=== PATIENT | female | born 1955 | race African-American/Black ===

== ENCOUNTER 2016-10-27 22:08 | Emergency (ER) | payer OTHER ==
[~2016-10-27 22:08] MED LIST: ECOT81TA2 PO; LISI10TA3 PO; MEGE40SU PO; METO25TA3 PO; Z.0.WALKERFRONT
[2016-10-27 22:11] VITALS: BP 213/93; PULSE 102; RESP 20; TEMP 99.2; O2SAT 97
[2016-10-27] MEDS ORDERED: ONDANSETRON HCL 4 MG/2 ML VIAL IVP ONE (23:15)
[2016-10-27] MEDS ORDERED: HYDROmorphone HCL PF 1 MG/ML VIAL IVS ONE (23:15)
--- NOTE | 2016-10-28 00:10 | RADRPT ---
EXAM DATE/TIME: 10/27/2016 23:31 [facility] COMPARISON: CT ABDOMEN & PELVIS W/O CONTRAST, July 21, 2015, 5:32. INDICATIONS : Abdomen pain. MEDICAL HISTORY : Carcinoma, gastric. Diabetes mellitus type 2. Cardiovascular disease. SURGICAL HISTORY : Cholecystectomy. Hysterectomy. section. ENCOUNTER: Initial ACUITY: 1 day PAIN SCORE: 0/10 LOCATION: Bilateral abdomen FINDINGS: Gas is seen in loops of small and large bowel. No disproportionately dilated loops seen. Anastomosi s sutures seen in the left lateral midabdomen. Osseous structures are grossly intact. The visualize d lower lungs are clear. No evidence of free air on the erect view. CONCLUSION: Gas-filled loops of small and large bowel, similar to prior. Gonzalo Kim MD on October 28, 2016 at 0:06 Board Certified Radiologist. This report was verified electronically.
--- NOTE | 2016-10-28 00:17 | PD ---
HPI Chief Complaint: Abdominal Pain Time Seen by Provider: 22:40 Travel History International Travel<30 days: No Contact w/Intl Traveler<30days: No Traveled to known affect area: No History of Present Illness HPI H/O RECURRENT GASTRIC CA, IS UNDERGOING TREATMENT AND HAS DECLINED HOSPICE. PATIENT IS HERE FOR ABDOMINAL PAIN, NO N/V/D, HAS NL BOWEL MOVEMENTS THUS FAR. PATIENT STATES THAT HER HOME PAIN MEDICATION IS NOT HELPING HER, SHE UNDERSTANDS THAT HER CANCER IS WHAT'S CAUSING HER PAIN AND DOES NOT REALLY WANT ANY MAJOR WORK UP (HER H/P WAS CORROBORATED BY EMR) PFSH Past Medical History Hx Anticoagulant Therapy: Yes Anemia: Yes Arthritis: Yes Autoimmune Disease: No Heart Rhythm Problems: No Cancer: Yes (Gastric cancer) Cardiac Catheterization: Yes Cardiovascular Problems: Yes (HTN) High Cholesterol: Yes Chemotherapy: Yes Chest Pain: Yes Congestive Heart Failure: No Diabetes: Yes Patient Takes Glucophage: No Diminished Hearing: No Endocrine: Yes Gastrointestinal Disorders: Yes (GASTRIC CANCER, NAUSEA, GALLSTONES) GERD: Yes Genitourinary: No Hepatitis: No Hiatal Hernia: No Hypertension: Yes Immune Disorder: No Medical other: Yes (TIRES VERY EASILY, ANEMIA) Musculoskeletal: Yes Neurologic: No Psychiatric: No Reproductive: No Respiratory: Yes Immunizations Current: Yes Radiation Therapy: Yes Thyroid Disease: No ?: Not Menopausal: Yes : 1 Para: 1 Past Surgical History Abdominal Surgery: Yes (Gastric surgery, gallstones removal, resection w/ colostomy and reversal) AICD: No Body Medical Devices: CARDIAC STENTS X 2; INFUS A PORT Cardiac Surgery: Yes (Cardiac stents x2) Section: Yes Cholecystectomy: Yes Coronary Artery Bypass Graft: No Coronary Stent: Yes (x 4) Ear Surgery: No Endocrine Surgery: Yes Eye Surgery: No Genitourinary Surgery: No Gynecologic Surgery: Yes Hysterectomy: Yes Joint Replacement: No Oral Surgery: No Pacemaker: No Thoracic Surgery: No Other Surgery: Yes Family History Family Myocardial Infarction: Yes Social History Alcohol Use: No Tobacco Use: No Substance Use: No (hx) Allergies-Medications (Allergen,Severity, Reaction): Coded Allergies: *MDRO Multi-Drug Resistant Organism (Verified Adverse Reaction, Unknown, ) MRSA 2011 Wound MRSA PCR Screen negative 02/21/15 and 02/26/15. Cleared per Infection Control. Reported Meds & Prescriptions Reported Meds & Active Scripts Active Megestrol Liq (Megestrol Acetate) 40 Mg/Ml Susp 400 Mg PO DAILY Metoprolol Tartrate 25 Mg Tab 25 Mg PO DAILY Lisinopril 10 Mg Tab 10 Mg PO DAILY Ecotrin Low Strength (Aspirin) 81 Mg Tabec 81 Mg PO DAILY Walker Front Wheel ([email or web address].walkerfront) Device 1 Unit Review of Systems Gastrointestinal: Positive: Abdominal Pain Physical Exam Narrative GENERAL: SKIN: Warm and dry. HEAD: Atraumatic. Normocephalic. EYES: Pupils equal and round. No scleral icterus. No injection or drainage. ENT: No nasal bleeding or discharge. Mucous membranes pink and moist. NECK: Trachea midline. No JVD. CARDIOVASCULAR: Regular rate and rhythm. RESPIRATORY: No accessory muscle use. Clear to auscultation. Breath sounds equal bilaterally. GASTROINTESTINAL: Abdomen OBESE, SOFT, EPIG REGION HAS SOME TTP, NO REBOUND/ GUARDING/RIGIDITY NOTED MUSCULOSKELETAL: Extremities without clubbing, cyanosis, or edema. No obvious deformities. NEUROLOGICAL: Awake and alert. No obvious cranial nerve deficits. Motor grossly within normal limits. Five out of 5 muscle strength in the arms and legs. Normal speech. PSYCHIATRIC: Appropriate mood and affect; insight and judgment normal. Data Data Last Documented VS Vital Signs Date Time Temp Pulse Resp B/P Pulse Ox O2 Delivery O2 Flow Rate FiO2 10/27/16 22:20 15 10/27/16 22:11 99.2 102 213/93 97 Orders Abdomen, Flat & Upright (10/27/16 ) Ondansetron Inj (Zofran Inj) (10/27/16 23:15) Hydromorphone Pf Inj (Dilaudid Pf Inj) (10/27/16 23:15) MDM Medical Decision Making Medical Screen Exam Complete: Yes Emergency Medical Condition: Yes Medical Record Reviewed: Yes Differential Diagnosis SBO V PERFORATION V CANCER RELATED PAIN Narrative Course AFTER CORROBORATING HER CURRENT MED HISTORY RECENT OCTOBER 2016, WILL PROVIDE PAIN CONTROL AND D/C TO F/U WITH ONCOLOGIST....ADDITIONALLY PATIENT STATED SHE HAS PAIN MEDICATION AT HOME THAT SHE WILL CONTINUE TAKING AND SHE WILL F/U WITH HER ONCOLOGIST Diagnosis Primary Impression: BREAKTHROUGH ABDOMINAL PAIN DUE TO GASTRIC CANCER Patient Instructions: Narcotic given in the ED, General Instructions Disposition: DISCHARGE HOME Condition: Stable Mulugeta Jamil MD Oct 28, 2016 00:16
[2016-10-28] MEDS ORDERED: HYDROmorphone HCL PF 1 MG/ML VIAL IVS ONE (01:30)
== END 2016-10-28 01:30 | disposition home or self-care (01) ==
LOC: NEPC 22:08
DX: C16.9 Malignant neoplasm of stomach, unspecified (principal); Z79.01 Long term (current) use of anticoagulants; I10 Essential (primary) hypertension; E78.00 Pure hypercholesterolemia, unspecified; D64.9 Anemia, unspecified; M19.90 Unspecified osteoarthritis, unspecified site; Z95.5 Presence of coronary angioplasty implant and graft
CPT/HCPCS: 74020; 96374; 96375; 99284; J1170; J1642; J2405

== ENCOUNTER 2017-02-12 11:31 | Emergency (ER) | payer OTHER ==
[~2017-02-12] VITALS: Ht 152.4 cm; Wt 45.0 kg
[~2017-02-12 11:31] MED LIST changes: +ALEN1TAB48 PO; +AMLO5TAB2 PO
[2017-02-12 11:33] VITALS: BP 121/64; PULSE 95; RESP 16; TEMP 98.6; O2SAT 97
[2017-02-12] MEDS ORDERED: SODIUM CHLOR 0.9% 1000 ML INJ 1,000 ML IV ONE (12:30)
[2017-02-12] MEDS ORDERED: ACETAMINOPHEN/HYDROcodone 325 MG/5 MG TAB PO ONE (12:30)
--- NOTE | 2017-02-12 13:08 | RADRPT ---
EXAM DATE/TIME: 02/12/2017 12:44 [facility] COMPARISON: CHEST PA & LAT, February 26, 2015, 10:17. ABDOMEN FLAT & UPRIGHT, October 27, 2016, 23:31. INDICATIONS : Short of breath, weakness. MEDICAL HISTORY : Carcinoma, gastric. SURGICAL HISTORY : Cholecystectomy. ENCOUNTER: Initial ACUITY: 1 day PAIN SCORE: 0/10 LOCATION: Bilateral chest FINDINGS: The [id number] in good position. There is a focal area of infiltrate seen in the right midlung fie ld. This is concerning for a pneumonia. Followup to ensure there is no underlying mass would be warra nted. The left lung is clear. The bony structures demonstrate degenerative changes in the shoulders but are otherwise intact. CONCLUSION: 1. There is focal infiltrate in the right midlung field concerning for pneumonia. Please see above. 2. The [id number] in satisfactory position. Bharat Tillman MD on February 12, 2017 at 13:05 Board Certified Radiologist. This report was verified electronically.
[2017-02-12 13:13] LABS: AUTOMATED NEUTROPHIL # 7.1 TH/MM3 (1.8-7.7); BASOPHIL # 0.1 TH/MM3 (0-0.2); BASOPHIL % 0.6 % (0.0-2.0); EOSINOPHIL % 0.2 % (0.0-4.0); HEMATOCRIT 32.7 % (35.0-46.0); HEMO FLAGS DIFF FINAL; LYMPH % 22.5 % (9.0-44.0); LYMPHOCYTE # 2.6 TH/MM3 (1.0-4.8); MEAN CELL VOLUME 88.1 FL (80.0-100.0); MEAN CORPUSCULAR HEMOGLOBIN 30.6 PG (27.0-34.0); MEAN CORPUSCULAR HGB CONC 34.8 % (32.0-36.0); NEUT % 62.7 % (16.0-70.0); PLATELET COUNT 491 TH/MM3 (150-450); RED BLOOD COUNT 3.72 MIL/MM3 (4.00-5.30); RED CELL DISTRIBUTION WIDTH 15.5 % (11.6-17.2); WHITE BLOOD COUNT 11.3 TH/MM3 (4.0-11.0)
[2017-02-12 13:23] LABS: BACTERIA, URINE RARE /hpf; BLOOD, URINE TRACE (NEG); COMMENT (UR) CULT NOT INDICATED; CULTURE IF INDICATED CULT NOT INDICATED; GLUCOSE,URINE NEG (NEG); HYALINE CAST, URINE 7 /lpf (RARE); KETONE, URINE 10 mg/dL (NEG); MUCUS URINE FEW /lpf (OCC); NITRITE,URINE NEG (NEG); PH, URINE 5.5 (5.0-8.5); SQUAMOUS EPITHELIAL CELL URINE 4 /hpf (0-5); URINE COLOR YELLOW (YELLW/STRAW)
[2017-02-12] MEDS ORDERED: HYDR-3533 PO (13:23)
[2017-02-12] MEDS ORDERED: LEVO750T3 PO (13:23)
--- NOTE | 2017-02-12 13:23 | PD ---
HPI Chief Complaint: Abdominal Pain Time Seen by Provider: 12:22 Travel History International Travel<30 days: No Contact w/Intl Traveler<30days: No Traveled to known affect area: No History of Present Illness HPI This is a 61-year-old woman who presents to the emergency department complaining of feeling sick. She is a history of recurrent stomach malignancy. She is on chemotherapy. She's had some subjective fevers as well. She's had some cough cold symptoms. She feels like the cough just won't come up. She had some back pain with this. She's been out of her pain medicine. She follows up with Dr. Garcia here. Last chemotherapy was several weeks ago. History Past Medical History Narrative Medical Recurrent epigastric malignancy Diabetes Hypertension History of heart disease Menopausal: Yes : 1 Para: 1 Social History Alcohol Use: No Tobacco Use: No Allergies-Medications (Allergen,Severity, Reaction): Coded Allergies: *MDRO Multi-Drug Resistant Organism (Verified Adverse Reaction, Unknown, 02/12/17) MRSA 2011 Wound MRSA PCR Screen negative 02/21/15 and 02/26/15. Cleared per Infection Control. Reported Meds & Prescriptions Reported Meds & Active Scripts Active Levofloxacin 750 Mg Tablet 750 Mg PO DAILY 10 Days Lortab (Hydrocodone-Acetaminophen) 5-325 Mg Tab 1-2 Tab PO Q6H PRN Alendronate (Alendronate Sodium) 70 Mg Tab 70 Mg PO Q7D Amlodipine (Amlodipine Besylate) 5 Mg Tab 5 Mg PO DAILY Metoprolol Tartrate 25 Mg Tab 25 Mg PO DAILY Lisinopril 10 Mg Tab 10 Mg PO DAILY Megestrol Liq (Megestrol Acetate) 40 Mg/Ml Susp 400 Mg PO DAILY Ecotrin Low Strength (Aspirin) 81 Mg Tabec 81 Mg PO DAILY Walker Front Wheel (Z.0.walkerfront) Device 1 Unit Review of Systems Except as stated in HPI: all other systems reviewed are Neg Physical Exam Narrative GENERAL: Well-appearing 61-year-old woman, no acute distress. SKIN: Focused skin assessment warm/dry. NECK: Trachea midline. No JVD. CARDIOVASCULAR: Abdomen flat and soft. No tenderness. RESPIRATORY: No accessory muscle use. Clear to auscultation. Breath sounds equal bilaterally. GASTROINTESTINAL: Abdomen soft, non-tender, nondistended. Hepatic and splenic margins not palpable. MUSCULOSKELETAL: No obvious deformities. No edema. NEUROLOGICAL: Awake and alert. No obvious cranial nerve deficits. Motor grossly within normal limits. Normal speech. Data Data Last Documented VS Vital Signs Date Time Temp Pulse Resp B/P (MAP) Pulse Ox O2 Delivery O2 Flow Rate FiO2 02/12/17 13:45 16 02/12/17 11:33 98.6 95 121/64 (83) 97 Orders Orders Complete Blood Count With Diff (02/12/17 12:26) Comprehensive Metabolic Panel (02/12/17 12:26) Lipase (02/12/17 12:26) Iv Access Insert/Monitor (02/12/17 12:26) Urinalysis - C+S If Indicated (02/12/17 12:26) Acetamin-Hydrocod 325-5 Mg ([place] 5-325 (02/12/17 12:30) Sodium Chlor 0.9% 1000 Ml Inj (Ns 1000 M (02/12/17 12:30) Chest, Single Ap (02/12/17 ) Labs Laboratory Tests Test 02/12/17 12:45 White Blood Count 11.3 TH/MM3 Red Blood Count 3.72 MIL/MM3 Hemoglobin 11.4 GM/DL Hematocrit 32.7 % Mean Corpuscular Volume 88.1 FL Mean Corpuscular Hemoglobin 30.6 PG Mean Corpuscular Hemoglobin Concent 34.8 % Red Cell Distribution Width 15.5 % Platelet Count 491 TH/MM3 Mean Platelet Volume 7.1 FL Neutrophils (%) (Auto) 62.7 % Lymphocytes (%) (Auto) 22.5 % Monocytes (%) (Auto) 14.0 % Eosinophils (%) (Auto) 0.2 % Basophils (%) (Auto) 0.6 % Neutrophils # (Auto) 7.1 TH/MM3 Lymphocytes # (Auto) 2.6 TH/MM3 Monocytes # (Auto) 1.6 TH/MM3 Eosinophils # (Auto) 0.0 TH/MM3 Basophils # (Auto) 0.1 TH/MM3 CBC Comment DIFF FINAL Differential Comment Urine Color YELLOW Urine Turbidity HAZY Urine pH 5.5 Urine Specific [place] 1.021 Urine Protein 30 mg/dL Urine Glucose (UA) NEG mg/dL Urine Ketones 10 mg/dL Urine Occult Blood TRACE Urine Nitrite NEG Urine Bilirubin NEG Urine Urobilinogen LESS THAN 2.0 MG/DL Urine Leukocyte Esterase NEG Urine RBC 2 /hpf Urine WBC 4 /hpf Urine Squamous Epithelial Cells 4 /hpf Urine Bacteria RARE /hpf Urine Hyaline Casts 7 /lpf Urine Mucus FEW /lpf Microscopic Urinalysis Comment CULT NOT INDICATED Blood Urea Nitrogen 17 MG/DL Creatinine 0.91 MG/DL Random Glucose 124 MG/DL Total Protein 9.0 GM/DL Albumin 2.9 GM/DL Calcium Level 9.1 MG/DL Alkaline Phosphatase 57 U/L Aspartate Amino Transf (AST/SGOT) 16 U/L Alanine Aminotransferase (ALT/SGPT) 15 U/L Total Bilirubin 0.4 MG/DL Sodium Level 138 MEQ/L Potassium Level 3.1 MEQ/L Chloride Level 106 MEQ/L Carbon Dioxide Level 23.8 MEQ/L Anion Gap 8 MEQ/L Estimat Glomerular Filtration Rate 76 ML/MIN Lipase 126 U/L MDM Medical Decision Making Medical Screen Exam Complete: Yes Emergency Medical Condition: Yes Interpretation(s) Chest x-ray: Focal infiltrate in the right midlung. Possible pneumonia. We'll need repeat exam Differential Diagnosis Pain from malignancy, infection, gastritis, cough cold symptoms, pneumonia, other Narrative Course Medical decision-making new para 61-year-old woman with recurrent gastric cancer here with cough cold symptoms and GI pain. She looks well. X-ray suggestive of pneumonia. We'll treat with pain medicine and antibiotics and outpatient follow-up. Diagnosis Primary Impression: Pneumonia Additional Instructions: Follow-up with the primary doctor in the next 2-4 days. Take antibiotics as prescribed. Use pain medicine as needed. Return to the emergency department for any new or worsening symptoms. Med/Other Pt SpecificInfo: Prescription(s) given Scripts Levofloxacin (Levofloxacin) 750 Mg Tablet 750 MG PO DAILY for Infection for 10 Days, #10 TAB 0 Refills Prov: aJn Cabrera MD 02/12/17 Hydrocodone-Acetaminophen (Lortab) 5-325 Mg Tab 1-2 TAB PO Q6H Y for PAIN, #21 TAB 0 Refills Prov: Jan Cabrera MD 02/12/17 Disposition: 01 DISCHARGE HOME Condition: Stable Jan Cabrera MD Feb 12, 2017 13:23
[2017-02-12 13:37] LABS: ALT (GPT) 15 U/L (10-53); ANION GAP 8 MEQ/L (5-15); AST (GOT) 16 U/L (15-37); BICARBONATE 23.8 MEQ/L (21.0-32.0); BLOOD UREA NITROGEN 17 MG/DL (7-18); CHLORIDE 106 MEQ/L (98-107); GLOMERULAR FILTRATION RATE 76 ML/MIN (>89); POTASSIUM 3.1 MEQ/L (3.5-5.1); SODIUM (NA) 138 MEQ/L (136-145)
[2017-02-12 13:40] LABS: ALKALINE PHOSPHATASE 57 U/L (45-117); TOTAL BILIRUBIN ADULT 0.4 MG/DL (0.2-1.0)
[2017-02-12 13:45] VITALS: RESP 16
[2017-02-12] MEDS ORDERED: SODIUM CHLORIDE 0.9% FLUSH 10 ML FLUSH IVF PRN (14:30)
== END 2017-02-12 14:35 | disposition home or self-care (01) ==
LOC: NEPD 11:31
DX: J18.9 Pneumonia, unspecified organism (principal); E11.9 Type 2 diabetes mellitus without complications; I11.9 Hypertensive heart disease without heart failure; Z85.028 Personal history of other malignant neoplasm of stomach; Z79.899 Other long term (current) drug therapy
CPT/HCPCS: 71010; 80053; 81001; 83690; 85025; 96360; 99284; J1642; J7030

== ENCOUNTER 2017-09-13 00:10 | Emergency (ER) | payer OTHER ==
[~2017-09-13] VITALS: Ht 152.4 cm; Wt 55.0 kg
[~2017-09-13 00:10] MED LIST changes: +HYDR-3533 PO; +LEVO750T3 PO
[2017-09-13 00:17] VITALS: BP 175/86; PULSE 88; RESP 18; TEMP 99.4; O2SAT 98
[2017-09-13] MEDS ORDERED: ONDANSETRON ODT 4 MG TAB PO ONE (01:15)
[2017-09-13] MEDS ORDERED: KETOROLAC TROMETHAMINE 30 MG/ML (IVP) VIAL IVP ONE (01:15)
[2017-09-13] MEDS ORDERED: MORPHINE SULFATE 8 MG/ML INJ IV PUSH ONE (01:15)
[2017-09-13] MEDS ORDERED: SODIUM CHLORIDE 0.9% FLUSH 10 ML FLUSH IV FLUSH PRN (01:15)
[2017-09-13 02:44] LABS: AUTOMATED NEUTROPHIL # 3.7 TH/MM3 (1.8-7.7); BASOPHIL # 0.1 TH/MM3 (0-0.2); BASOPHIL % 0.9 % (0.0-2.0); EOSINOPHIL # 0.1 TH/MM3 (0-0.4); EOSINOPHIL % 1.5 % (0.0-4.0); HEMATOCRIT 38.9 % (35.0-46.0); LYMPH % 36.1 % (9.0-44.0); LYMPHOCYTE # 2.7 TH/MM3 (1.0-4.8); MEAN CELL VOLUME 90.9 FL (80.0-100.0); MEAN CORPUSCULAR HEMOGLOBIN 30.4 PG (27.0-34.0); MEAN CORPUSCULAR HGB CONC 33.4 % (32.0-36.0); MEAN PLATELET VOLUME 7.4 FL (7.0-11.0); MONOCYTE # 0.8 TH/MM3 (0-0.9); NEUT % 50.5 % (16.0-70.0); PLATELET COUNT 290 TH/MM3 (150-450); RED BLOOD COUNT 4.29 MIL/MM3 (4.00-5.30); RED CELL DISTRIBUTION WIDTH 16.7 % (11.6-17.2); WHITE BLOOD COUNT 7.3 TH/MM3 (4.0-11.0)
[2017-09-13] MEDS ORDERED: MORPHINE SULFATE 4 MG/ML INJ IV PUSH ONE (03:00)
[2017-09-13 03:11] LABS: ALBUMIN 3.5 GM/DL (3.4-5.0); ALT (GPT) 26 U/L (10-53); AST (GOT) 23 U/L (15-37); BICARBONATE 20.4 MEQ/L (21.0-32.0); BLOOD UREA NITROGEN 15 MG/DL (7-18); CALCIUM 7.9 MG/DL (8.5-10.1); CHLORIDE 115 MEQ/L (98-107); CREATININE 0.81 MG/DL (0.50-1.00); GLOMERULAR FILTRATION RATE 87 ML/MIN (>89); GLUCOSE,RANDOM 100 MG/DL (74-106); SODIUM (NA) 144 MEQ/L (136-145)
[2017-09-13 03:13] LABS: ALKALINE PHOSPHATASE 43 U/L (45-117); TOTAL BILIRUBIN ADULT 0.3 MG/DL (0.2-1.0); TOTAL PROTEIN 7.9 GM/DL (6.4-8.2)
[2017-09-13 04:07] LABS: BILIRUBIN, URINE NEG (NEG); BLOOD, URINE SMALL (NEG); GLUCOSE,URINE NEG (NEG); HYALINE CAST, URINE 3 /lpf (RARE); KETONE, URINE NEG (NEG); NITRITE,URINE NEG (NEG); PH, URINE 5.5 (5.0-8.5); URINE COLOR YELLOW (YELLW/STRAW); URINE LEUKOCYTE ESTERASE NEG (NEG)
[2017-09-13] MEDS ORDERED: TRAM50TA PO (04:13)
--- NOTE | 2017-09-13 04:13 | PD ---
HPI Chief Complaint: Abdominal Pain Time Seen by Provider: 00:26 Travel History International Travel<30 days: No Contact w/Intl Traveler<30days: No Traveled to known affect area: No History of Present Illness HPI 62-year-old female complains of abdominal pain generalized flank and the pelvis. As well in the region of the left upper quadrant. Patient has history gastric cancer and states the pain is similar to cancer pain she has had until today however much worse today. No fever. Timing constant. Severity moderate. Patient has no pain medication at home. PFSH Past Medical History Hx Anticoagulant Therapy: Yes Anemia: Yes Arthritis: Yes Autoimmune Disease: No Heart Rhythm Problems: No Cancer: Yes (Gastric cancer) Cardiac Catheterization: Yes Cardiovascular Problems: Yes (HTN) High Cholesterol: Yes Chemotherapy: Yes Chest Pain: Yes Congestive Heart Failure: No Diabetes: Yes Patient Takes Glucophage: Yes (09/13/2017 0800) Diminished Hearing: No Endocrine: Yes Gastrointestinal Disorders: Yes (GASTRIC CANCER, NAUSEA, GALLSTONES) GERD: Yes Genitourinary: No Hepatitis: No Hiatal Hernia: No Hypertension: Yes Immune Disorder: No Medical other: Yes (TIRES VERY EASILY, ANEMIA) Musculoskeletal: Yes Neurologic: No Psychiatric: No Reproductive: No Respiratory: Yes Immunizations Current: Yes Radiation Therapy: Yes Thyroid Disease: No Tetanus Vaccination: Unknown Influenza Vaccination: No LMP: menapause Menopausal: Yes : 1 Para: 1 Past Surgical History Abdominal Surgery: Yes (Gastric surgery, gallstones removal, resection w/ colostomy and reversal) AICD: No Body Medical Devices: CARDIAC STENTS X 2; INFUS A PORT Cardiac Surgery: Yes (Cardiac stents x2) Section: Yes Cholecystectomy: Yes Coronary Artery Bypass Graft: No Coronary Stent: Yes (x 4) Ear Surgery: No Endocrine Surgery: Yes Eye Surgery: No Genitourinary Surgery: No Gynecologic Surgery: Yes Hysterectomy: Yes Joint Replacement: No Oral Surgery: No Pacemaker: No Thoracic Surgery: No Other Surgery: Yes Family History Family Myocardial Infarction: Yes Social History Alcohol Use: No Tobacco Use: No Substance Use: No (hx) Allergies-Medications (Allergen,Severity, Reaction): Coded Allergies: *MDRO Multi-Drug Resistant Organism (Verified Adverse Reaction, Unknown, ) MRSA 2011 Wound MRSA PCR Screen negative 02/21/15 and 02/26/15. Cleared per Infection Control. Reported Meds & Prescriptions Reported Meds & Active Scripts Active Levofloxacin 750 Mg Tablet 750 Mg PO DAILY 10 Days Lortab (Hydrocodone-Acetaminophen) 5-325 Mg Tab 1-2 Tab PO Q6H PRN Alendronate (Alendronate Sodium) 70 Mg Tab 70 Mg PO Q7D Amlodipine (Amlodipine Besylate) 5 Mg Tab 5 Mg PO DAILY Metoprolol Tartrate 25 Mg Tab 25 Mg PO DAILY Lisinopril 10 Mg Tab 10 Mg PO DAILY Megestrol Liq (Megestrol Acetate) 40 Mg/Ml Susp 400 Mg PO DAILY Ecotrin Low Strength (Aspirin) 81 Mg Tabec 81 Mg PO DAILY Walker Front Wheel (Z.0.walkerfront) Device 1 Unit Review of Systems Except as stated in HPI: all other systems reviewed are Neg Physical Exam Narrative GENERAL: 62-year-old female pleasant well-nourished well-developed mild distress secondary pain Vital Signs Date Time Temp Pulse Resp B/P (MAP) Pulse Ox O2 Delivery O2 Flow Rate FiO2 09/13/17 02:51 Room Air 09/13/17 00:17 99.4 88 18 175/86 (115) 98 SKIN: Warm and dry. HEAD: Atraumatic. Normocephalic. EYES: Pupils equal and round. No scleral icterus. No injection or drainage. ENT: No nasal bleeding or discharge. Mucous membranes pink and moist. NECK: Trachea midline. No JVD. CARDIOVASCULAR: Regular rate and rhythm. RESPIRATORY: No accessory muscle use. Clear to auscultation. Breath sounds equal bilaterally. GASTROINTESTINAL: Abdomen soft, non-tender, nondistended. Hepatic and splenic margins not palpable. MUSCULOSKELETAL: Extremities without clubbing, cyanosis, or edema. No obvious deformities. NEUROLOGICAL: Awake and alert. No obvious cranial nerve deficits. Motor grossly within normal limits. Five out of 5 muscle strength in the arms and legs. Normal speech. PSYCHIATRIC: Appropriate mood and affect; insight and judgment normal. Data Data Last Documented VS Vital Signs Date Time Temp Pulse Resp B/P (MAP) Pulse Ox O2 Delivery O2 Flow Rate FiO2 09/13/17 02:51 Room Air 09/13/17 00:17 99.4 88 18 175/86 (115) 98 Orders Orders Complete Blood Count With Diff (09/13/17 01:10) Comprehensive Metabolic Panel (09/13/17 01:10) Lipase (09/13/17 01:10) Urinalysis - C+S If Indicated (09/13/17 01:10) Iv Access Insert/Monitor (09/13/17 01:10) Ecg Monitoring (09/13/17 01:10) Oximetry (09/13/17 01:10) Sodium Chloride 0.9% Flush (Ns Flush) (09/13/17 01:15) Ketorolac Inj (Toradol Inj) (09/13/17 01:15) Ondansetron Odt (Zofran Odt) (09/13/17 01:15) Morphine Inj (Morphine Inj) (09/13/17 03:00) Labs Laboratory Tests Test 09/13/17 02:30 09/13/17 03:52 White Blood Count 7.3 TH/MM3 Red Blood Count 4.29 MIL/MM3 Hemoglobin 13.0 GM/DL Hematocrit 38.9 % Mean Corpuscular Volume 90.9 FL Mean Corpuscular Hemoglobin 30.4 PG Mean Corpuscular Hemoglobin Concent 33.4 % Red Cell Distribution Width 16.7 % Platelet Count 290 TH/MM3 Mean Platelet Volume 7.4 FL Neutrophils (%) (Auto) 50.5 % Lymphocytes (%) (Auto) 36.1 % Monocytes (%) (Auto) 11.0 % Eosinophils (%) (Auto) 1.5 % Basophils (%) (Auto) 0.9 % Neutrophils # (Auto) 3.7 TH/MM3 Lymphocytes # (Auto) 2.7 TH/MM3 Monocytes # (Auto) 0.8 TH/MM3 Eosinophils # (Auto) 0.1 TH/MM3 Basophils # (Auto) 0.1 TH/MM3 CBC Comment DIFF FINAL Differential Comment Blood Urea Nitrogen 15 MG/DL Creatinine 0.81 MG/DL Random Glucose 100 MG/DL Total Protein 7.9 GM/DL Albumin 3.5 GM/DL Calcium Level 7.9 MG/DL Alkaline Phosphatase 43 U/L Aspartate Amino Transf (AST/SGOT) 23 U/L Alanine Aminotransferase (ALT/SGPT) 26 U/L Total Bilirubin 0.3 MG/DL Sodium Level 144 MEQ/L Potassium Level 3.1 MEQ/L Chloride Level 115 MEQ/L Carbon Dioxide Level 20.4 MEQ/L Anion Gap 9 MEQ/L Estimat Glomerular Filtration Rate 87 ML/MIN Lipase 167 U/L Urine Color YELLOW Urine Turbidity CLEAR Urine pH 5.5 Urine Specific [place] 1.020 Urine Protein 30 mg/dL Urine Glucose (UA) NEG mg/dL Urine Ketones NEG mg/dL Urine Occult Blood SMALL Urine Nitrite NEG Urine Bilirubin NEG Urine Urobilinogen LESS THAN 2.0 MG/DL Urine Leukocyte Esterase NEG Urine RBC 7 /hpf Urine WBC 1 /hpf Urine Hyaline Casts 3 /lpf Microscopic Urinalysis Comment CULT NOT INDICATED MDM Medical Decision Making Medical Screen Exam Complete: Yes Emergency Medical Condition: Yes Medical Record Reviewed: Yes Differential Diagnosis Constipation, Gastritis, Acute Cholecystitis, Biliary Colic, Pancreatitis, BARRIENTOS , Hepatitis, Bowel Obstruction, Cystitis, Mesenteric Ischemia, AAA, Appendicitis , Renal Stone/Hydronephrosis, GERD, perforated viscous Narrative Course CBC & BMP Diagram 09/13/17 02:30 Total Protein 7.9, Albumin 3.5, Calcium Level 7.9 L, Alkaline Phosphatase 43 L, Aspartate Amino Transf (AST/SGOT) 23, Alanine Aminotransferase (ALT/SGPT) 26, Total Bilirubin 0.3 Lipase normal UA: hematuria The patient is resting comfortably and feels better, is alert and in no distress. The patients results and examination findings were discussed. The repeat examination is unremarkable and benign. The history, exam, diagnostic testing, and current condition do not suggest any significant pathology to warrant further testing, continued ED treatment, admission, or surgical evaluation at this point. The vital signs have been stable. The patient does not have uncontrollable pain, intractable vomiting, or other significant symptoms. The patient's condition is stable and appropriate for discharge. The patient will pursue further outpatient evaluation with a primary care physician or other designated or consulting physician as indicated in the discharge instructions. The patient expressed understanding and was agreeable with this plan. Diagnosis Primary Impression: Abdominal pain Qualified Codes: R10.9 - Unspecified abdominal pain Additional Impression: Hypokalemia Referrals: Primary Care Physician call for appointment Med/Other Pt SpecificInfo: Prescription(s) given Scripts Tramadol (Tramadol) 50 Mg Tab 100 MG PO Q6H Y for PAIN, #20 TAB 0 Refills Prov: Bharat Mas MD 09/13/17 Disposition: 01 DISCHARGE HOME Condition: Stable Bharat Mas MD September 13, 2017 04:13
== END 2017-09-13 04:44 | disposition home or self-care (01) ==
LOC: NEPC 00:10
DX: C16.9 Malignant neoplasm of stomach, unspecified (principal); E87.6 Hypokalemia; I10 Essential (primary) hypertension
CPT/HCPCS: 80053; 81001; 83690; 85025; 96374; 96375; 99284; J1885; J2270